=== PATIENT | female | born 1955 | race American Indian/Alaskan Native ===

== ENCOUNTER 2019-05-12 18:44 | Emergency (ER) | payer MEDICAID ==
[2019-05-12 19:13] VITALS: BP 141/64
--- NOTE | 2019-05-12 19:14 | Event Note ---
ED Screening Note Date of service: 05/12/19 Time: 19:10 ED Screening Note: Pt complains of sore throat and SOB x 3 days +smoker denies CP or fever This initial assessment/diagnostic orders/clinical plan/treatment(s) is/are subject to change based on patients health status, clinical progression and re- assessment by fellow clinical providers in the ED. Further treatment and workup at subsequent clinical providers discretion. Patient/guardian urged not to elope from the ED as their condition may be serious if not clinically assessed and managed. Initial orders include: CXR labs strep
[2019-05-12] MEDS ORDERED: IPRATROPIUM/ALBUTEROL SULFATE 3 ML AMPUL.NEB IH ONE (19:15)
[2019-05-12 20:37] LABS: Basophils % (Auto) 0.4 % (0.0-1.8); Eosinophils % (Auto) 0.6 % (0.0-4.3); Hematocrit 42.7 % (30.3-42.9); Hemoglobin 14.5 gm/dl (10.1-14.3); Lymphocytes # (Auto) 2.2 K/mm3 (1.2-5.4); Lymphocytes % (Auto) 28.9 % (13.4-35.0); Mean Corpuscular HGB Conc 34 % (30-34); Mean Corpuscular Volume 94 fl (79-97); Monocytes # (Auto) 0.9 K/mm3 (0.0-0.8); Monocytes % (Auto) 11.8 % (0.0-7.3); Platelet Count 229 K/mm3 (140-440); Red Blood Count 4.54 M/mm3 (3.65-5.03)
[2019-05-12 20:58] LABS: BUN/Creatinine Ratio 11; Blood Urea Nitrogen 8 mg/dL (7-17); Calcium 9.7 mg/dL (8.4-10.2); Hemolysis Index 5
[2019-05-12] MEDS ORDERED: ALBUTEROL 2.5 MG/3 ML NEBU IH ONE (21:00)
[2019-05-12] MEDS ORDERED: predniSONE 20 MG TAB PO ONE (21:00)
--- NOTE | 2019-05-12 21:06 | Emergency Department Report ---
ED Shortness of Breath HPI - General Chief Complaint: Dyspnea/Respdistress Stated Complaint: CHEST PAIN/LAURA/SORE THROAT Time Seen by Provider: 05/12/19 19:10 Source: patient Mode of arrival: Ambulatory Limitations: No Limitations - History of Present Illness Initial Comments: This is a 63-year-old female is a current tobacco smoker presents to ED compla ining of sore throat and shortness of breath for the past 3 days. Patient states that shortness of breath is worsened with walking. Patient states that she usually gets out of breath with short distances. She denies coughing, any trauma to the chest. Patient admits a past medical history of hypertension controlled with medication. Otherwise no other medical problems. She denies fever, history of asthma, abdominal pain MD Complaint: shortness of breath, chest pain - Related Data Home Oxygen Therapy: No Previous Rx's Medication Instructions Recorded Last Taken Type traMADol [Ultram 50 MG tab] 50 mg PO Q6HR PRN #12 tablet 07/02/18 Unknown Rx ALBUTEROL Inhaler (OR & NICU) 2 puff IH QID PRN #1 inhalation 05/12/19 Unknown Rx [ProAir HFA Inhaler] Naproxen [Naprosyn TAB] 500 mg PO BID #12 tablet 05/12/19 Unknown Rx Allergies Allergy/AdvReac Type Severity Reaction Status Date / Time No Known Allergies Allergy Unverified 07/02/18 17:40 ED Review of Systems ROS: Stated complaint: CHEST PAIN/LAURA/SORE THROAT Other details as noted in HPI Comment: All other systems reviewed and negative ED Past Medical Hx - Past Medical History Previous Medical History?: Yes Hx Hypertension: Yes - Surgical History Past Surgical History?: No - Social History Smoking Status: Current Every Day Smoker Substance Use Type: None - Medications Home Medications: Home Medications Medication Instructions Recorded Confirmed Last Taken Type traMADol [Ultram 50 MG tab] 50 mg PO Q6HR PRN #12 tablet 07/02/18 Unknown Rx ALBUTEROL Inhaler (OR & NICU) 2 puff IH QID PRN #1 inhalation 05/12/19 Unknown Rx [ProAir HFA Inhaler] Naproxen [Naprosyn TAB] 500 mg PO BID #12 tablet 05/12/19 Unknown Rx ED Physical Exam - General Limitations: No Limitations General appearance: alert, in no apparent distress - Head Head exam: Present: atraumatic, normocephalic - Eye Eye exam: Present: normal appearance - ENT ENT exam: Present: mucous membranes moist - Neck Neck exam: Present: normal inspection - Respiratory Respiratory exam: Present: normal lung sounds bilaterally. Absent: respiratory distress - Cardiovascular Cardiovascular Exam: Present: regular rate, normal rhythm. Absent: systolic murmur, diastolic murmur, rubs, gallop - GI/Abdominal GI/Abdominal exam: Present: soft, normal bowel sounds - Extremities Exam Extremities exam: Present: normal inspection - Back Exam Back exam: Present: normal inspection - Neurological Exam Neurological exam: Present: alert, oriented X3 - Psychiatric Psychiatric exam: Present: normal affect, normal mood - Skin Skin exam: Present: warm, dry, intact, normal color. Absent: rash ED Course Vital Signs 05/12/19 05/12/19 05/12/19 18:50 19:33 22:45 Temperature 99.4 F Pulse Rate 87 92 H Pulse Rate [ 85 Anterior Bilateral Throughout] Respiratory 16 17 Rate Respiratory 16 Rate [Anterior Bilateral Throughout] Blood Pressure 141/64 O2 Sat by Pulse 97 99 Oximetry ED Medical Decision Making - Lab Data Result diagrams: 05/12/19 20:01 05/12/19 20:01 Laboratory Last Values WBC 7.6 K/mm3 (4.5-11.0) 05/12/19 20: RBC 4.54 M/mm3 (3.65-5.03) 05/12/19 20:01 Hgb 14.5 gm/dl (10.1-14.3) H 05/12/19 20: Hct 42.7 % (30.3-42.9) 05/12/19 20: MCV 94 fl (79-97) 05/12/19 20:01 MCH 32 pg (28-32) 05/12/19 20: MCHC 34 % (30-34) 05/12/19 20: RDW 14.0 % (13.2-15.2) 05/12/19 20: Plt Count 229 K/mm3 (140-440) 05/12/19 20:01 Lymph % (Auto) 28.9 % (13.4-35.0) 05/12/19 20: [place] % (Auto) 11.8 % (0.0-7.3) H 05/12/19 20:01 Eos % (Auto) 0.6 % (0.0-4.3) 05/12/19 20:01 Baso % (Auto) 0.4 % (0.0-1.8) 05/12/19 20:01 Lymph # 2.2 K/mm3 (1.2-5.4) 05/12/19 20:01 [place] # 0.9 K/mm3 (0.0-0.8) H 05/12/19 20:01 Eos # 0.0 K/mm3 (0.0-0.4) 05/12/19 20:01 Baso # 0.0 K/mm3 (0.0-0.1) 05/12/19 20:01 Seg Neutrophils % 58.3 % (40.0-70.0) 05/12/19 20:01 Seg Neutrophils # 4.5 K/mm3 (1.8-7.7) 05/12/19 20:01 D-Dimer 174.69 ng/mlDDU (0-234) 05/12/19 21:08 Sodium 140 mmol/L (137-145) 05/12/19 20:01 Potassium 3.3 mmol/L (3.6-5.0) L 05/12/19 20:01 Chloride 99.0 mmol/L (98-107) 05/12/19 20:01 Carbon Dioxide 28 mmol/L (22-30) 05/12/19 20:01 Anion Gap 16 mmol/L 05/12/19 20:01 BUN 8 mg/dL (7-17) 05/12/19 20:01 Creatinine 0.7 mg/dL (0.7-1.2) 05/12/19 20:01 Estimated GFR > 60 ml/min 05/12/19 20:01 BUN/Creatinine Ratio 11 % 05/12/19 20:01 Glucose 114 mg/dL (65-100) H 05/12/19 20:01 Calcium 9.7 mg/dL (8.4-10.2) 05/12/19 20:01 Troponin T < 0.010 ng/mL (0.00-0.029) 05/12/19 20:01 Group A Strep Rapid Negative (Negative) 05/12/19 Unknown - Radiology Data Radiology results: report reviewed, image reviewed CHEST 2 VIEWS INDICATION / CLINICAL INFORMATION: shortness of breath, wheezing. COMPARISON: None available. FINDINGS: SUPPORT DEVICES: None. HEART / MEDIASTINUM: No significant abnormality. LUNGS / PLEURA: No significant pulmonary or pleural abnormality. No pneumothorax. ADDITIONAL FINDINGS: No significant additional findings. IMPRESSION: 1. No acute findings. Signer Name: Murray Garner MD Signed: 05/12/2019 9:07 PM Workstation Name: [id number] Transcribed By: TL Dictated By: Murray Garner MD Electronically Authenticated By: Murray Garner MD Signed Date/Time: 05/12/192106 - Medical Decision Making This 63-year-old female presents to ED with dyspnea with exertion. All labs are within normal limits. D-dimer is negative, chest x-ray was ne gative I discussed all this findings with the patient. I discussed with the patient to follow-up with the scabbler. Cardiology referral given. Patient received 2 breathing treatments in the ED some steroids and pain medicine. Her vital signs are normal. She is in no acute or respiratory distress. Patient is seen in the ED bed comfortably. Critical care attestation.: If time is entered above; I have spent that time in minutes in the direct care of this critically ill patient, excluding procedure time. ED Disposition Clinical Impression: Dyspnea on exertion Disposition: DC-01 TO HOME OR SELFCARE Is pt being admited?: No Does the pt Need Aspirin: No Condition: Stable Instructions: Dyspnea (ED) Additional Instructions: Make sure to follow up with the primary care physician as discussed. Take all your medications as you've been prescribed. If you have any worsening symptoms or develop new symptoms please return to ED immediately. Prescriptions: Naproxen [Naprosyn TAB] 500 mg PO BID #12 tablet ALBUTEROL Inhaler (OR & NICU) [ProAir HFA Inhaler] 2 puff IH QID PRN #1 inhalation PRN Reason: Shortness Of Breath Referrals: CONCETTA CARLTON MD [Primary Care Provider] - 3-5 Days ELEANOR RIDLEY MD [Staff Physician] - 3-5 Days [facility] [Provider Group] - 3-5 Days Forms: Accompanied Note, Work/School Release Form(ED) Time of Disposition: 22:32
--- NOTE | 2019-05-12 21:12 | XRay Report ---
CHEST 2 VIEWS INDICATION / CLINICAL INFORMATION: shortness of breath, wheezing. COMPARISON: None available. FINDINGS: SUPPORT DEVICES: None. HEART / MEDIASTINUM: No significant abnormality. LUNGS / PLEURA: No significant pulmonary or pleural abnormality. No pneumothorax. ADDITIONAL FINDINGS: No significant additional findings. IMPRESSION: 1. No acute findings. Signer Name: Murray Garner MD Signed: 05/12/2019 9:07 PM Workstation Name: [id number]
== END 2019-05-12 22:45 | disposition home or self-care (01) ==
LOC: ED 18:44
DX: R06.09 Other forms of dyspnea (principal); I10 Essential (primary) hypertension; F17.200 Nicotine dependence, unspecified, uncomplicated; Z79.899 Other long term (current) drug therapy
CPT/HCPCS: 36415; 71046; 80048; 84484; 85025; 85379; 87116; 87430; 94640; 99284; J7512; 94644